=== PATIENT | male | born 1960 | race Caucasian/White ===

== ENCOUNTER 2023-06-11 22:17 | Inpatient (IN) | payer MEDICARE, MEDICAID, SELFPAY ==
[2023-06-12] VITALS: BP 178/76; PULSE 56; RESP 18; TEMP 35.9; O2SAT 97
--- NOTE | 2023-06-12 00:51 | PC.ADMIT ---
Jose is a 63yo male who arrived on unit 06/11/2023 from [facility] and signed a CV. A&O(4), pleasant upon approach, made good eye contact, denied ETOH or substance use, denied SI/HI/AH/VH at time of admission, Pt presented for CAH to hurt self and neighbors, He says his current medications are not working, seeking med review, Past diagnosis and treatment for Schizophrenia and PTSD. Medical concerns are Stage 3 Chronic Kidney disease (BUN 28, GFR58 06/08/2023), HTN, GERD, CAD, NIDDM, Asthma, High Cholesterol, Chronic shoulder Pain, Hx seizures, Hx stroke, Coronary artery Bypass graft 2010, AK 2013, and Enuresis. Pt stated he was still tired from medications given in ER, He answered a few questions, got into bed and went to sleep. He is on 5-min saftey checks.
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
[2023-06-12 08:52] LABS: Alanine Aminotransferase 35 U/L (0-40); Alkaline Phosphatase 51 U/L (39-117); Anion Gap 11 (12-20); Aspartate Amino Transferase 19 U/L (5-37); Bilirubin Total 0.4 mg/dL (0.0-1.0); Blood Urea Nitrogen 16 mg/dL (9-16); Calcium 9.7 mg/dL (8.4-10.2); Carbon Dioxide 25 mmol/L (22-29); Chloride 108 mmol/L (96-108); Cholesterol 155 mg/dL; Estimated Glomerular Filt Rate > 60; Glucose Fasting 116 mg/dL (60-99); HDL Cholesterol 35 mg/dL; LDL Cholesterol Calculated 94 mg/dl; Potassium 4.3 mmol/L (3.3-5.1); Sodium 140 mmol/L (135-145); Total Protein 7.4 g/dL (6.5-8.0); Triglycerides 130 mg/dL
[2023-06-12 09:07] LABS: Thyroid Stimulating Hormone 2.02 uIU/mL (0.32-4.0)
[2023-06-12 09:17] LABS: Folate 9.7 ng/mL (> or = 4.0); Vitamin B12 345 pg/mL (200-900)
[2023-06-12 10:42] VITALS: BP 140/80; PULSE 76; RESP 16; TEMP 36.4; O2SAT 98
[2023-06-12] MEDS: metFORMIN HCl 1,000 MG TABLET 1000 MG PO ×2 (10:43→18:33)
[2023-06-12] MEDS: lisinopriL 5 MG TABLET PO (10:43)
[2023-06-12] MEDS: ARIPiprazole 20 MG TABLET PO (10:43)
[2023-06-12] MEDS: Omeprazole 20 MG CAPSULE.DR PO (10:43)
[2023-06-12] MEDS: Divalproex Sodium ER 500 MG TAB.ER.24H 1000 MG PO (10:44)
[2023-06-12] MEDS: Tamsulosin HCL 0.4 MG CAPSULE PO (10:44)
[2023-06-12] MEDS: Docusate Sodium 100 MG CAPSULE PO ×2 (10:44→20:01)
[2023-06-12] MEDS: Aspirin 81 MG TAB.CHEW PO (10:44)
[2023-06-12] MEDS: Divalproex Sodium 250 MG TABLET.DR PO (10:44)
[2023-06-12] MEDS: Atorvastatin Calcium 40 MG TABLET PO (10:44)
[2023-06-12] MEDS: Acetaminophen 325 MG TABLET 650 MG PO (10:56)
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
[2023-06-12 13:54] LABS: MANUAL DIFF FLAG NO
[2023-06-12 14:00] VITALS: BP 112/55
[2023-06-12 14:04] LABS: Basophils Absolute Auto 0.1 X10*3/uL (0.0-0.2); Basophils Percent Auto 1.2 % (0-2); Imm Gran Abs Auto 0.02 X10*3/uL (0.00-0.03); Imm Gran Pct Auto 0.3 % (0.0-0.4); SCAN SMEAR FLAG 1; White Blood Count 6.7 X10*3/uL (4.8-10.8)
[2023-06-12 14:06] LABS: Eosinophils Absolute Auto 0.2 X10*3/uL (0.0-0.4); Eosinophils Percent Auto 2.4 % (0-4); Hematocrit 32.7 % (42.0-52.0); Hemoglobin 10.1 g/dl (14.0-18.0); Lymphocytes Absolute Auto 2.1 X10*3/uL (1.2-4.9); Lymphocytes Percent Auto 31.3 % (20-40); Mean Corpuscular HGB Conc 30.9 g/dl (31.0-36.0); Mean Corpuscular Hemoglobin 24.4 pg (27.0-33.0); Monocytes Absolute Auto 0.8 X10*3/uL (0.1-1.2); Monocytes Percent Auto 11.6 % (2-11); Neutrophils Absolute Auto 3.6 x10*3/uL (2.0-8.3); Neutrophils Percent Auto 53.2 % (45-73); Platelet Count 198 X10*3/uL (160-400); Red Blood Count 4.14 X10*6/uL (4.60-5.80); Red Cell Distribution Width 17.7 % (11.0-16.0)
[2023-06-12 14:08] LABS: PLT ABN DIST 1
[2023-06-12 14:13] LABS: Iron 23 mcg/dL (45-160); Percent Iron Saturation 8 % (15-50); Total Iron Binding Capacity 288 mcg/dL (228-428); Unsaturated Iron Binding 265 ug/dL
[2023-06-12 14:45] VITALS: BP 125/67
[2023-06-12 16:36] LABS: Glucose, Whole Blood 85 mg/dL (60-115)
[2023-06-12 18:00] VITALS: BP 121/67; PULSE 79; RESP 18; TEMP 36.1; O2SAT 98
--- NOTE | 2023-06-12 18:51 | PC.NURSE ---
1400-PT C/O OF DIZZINESS, VS TAKEN: 112/55, PULSE 78. PT ENCOURAGED TO DRINK WATER TO REHYDRATE. PAINTING ALSO REPORTED, TYLENOL PROVIDED AND THAI ODOM NP NOTIFIED IN PERSON. 1445-VS RECHECK: 125/67, PULSE 72. PT STATED THAT HIS PAINTING HAD SUBSIDED SOME, AND HE WAS NOT FEELING DIZZY ANY LONGER.
[2023-06-12] MEDS: traZODone HCL 100 MG TABLET 200 MG PO (20:01)
[2023-06-12] MEDS: OLANZapine 10 MG TABLET 20 MG PO (20:02)
[2023-06-12 20:04] LABS: Glucose, Whole Blood 124 mg/dL (60-115)
[2023-06-13] MEDS: Omeprazole 20 MG CAPSULE.DR PO (06:35)
[2023-06-13 08:00] VITALS: BP 114/69; PULSE 83; RESP 18; TEMP 36.4; O2SAT 96
[2023-06-13] MEDS: Divalproex Sodium 250 MG TABLET.DR PO (08:46)
[2023-06-13] MEDS: ARIPiprazole 20 MG TABLET PO (08:46)
[2023-06-13] MEDS: Ferrous Sulfate 324 MG TABLET.DR PO (08:46)
[2023-06-13] MEDS: Aspirin 81 MG TAB.CHEW PO (08:46)
[2023-06-13] MEDS: metFORMIN HCl 1,000 MG TABLET 1000 MG PO ×2 (08:46→16:57)
[2023-06-13] MEDS: lisinopriL 5 MG TABLET PO (08:47)
[2023-06-13] MEDS: Tamsulosin HCL 0.4 MG CAPSULE PO (08:47)
[2023-06-13] MEDS: Ascorbic Acid 250 MG TABLET PO (08:47)
[2023-06-13] MEDS: Divalproex Sodium ER 500 MG TAB.ER.24H 1000 MG PO (08:47)
[2023-06-13] MEDS: Atorvastatin Calcium 40 MG TABLET PO (08:47)
[2023-06-13] MEDS: Docusate Sodium 100 MG CAPSULE PO ×2 (08:47→20:18)
[2023-06-13 09:48] LABS: Glucose, Whole Blood 111 mg/dL (60-115)
[2023-06-13 11:33] LABS: Glucose, Whole Blood 94 mg/dL (60-115)
--- NOTE | 2023-06-13 16:00 | P.PNPSI_ITS ---
Subjective Subjective Date of Service: 06/13/23 Reason For Visit: F25.0 , F43.10 Subjective Notes: Conditional Voluntary and 3 Day Interim History: Pt reports difficulty falling and staying asleep. Pt reports feeling tired in the morning and was trying to take a nap. He denied SI/HI. He reports less AH/VH. Pt reports he hopes to be discharged on Saturday, however, we discussed concern of daughter about his ability to care for himself. Per nursing, pt taking medications, no aggression towards self or others. Review of Systems Review of Systems General: No fevers, malaise, unintentional weight loss HEENT: No blurred vision, diplopia. No sore throat, nasal congestion, rhinorrhea, sinus pain, ear pain Cardiovascular: No chest pain, palpitations, or leg edema Respiratory: No shortness of breath, wheezing, cough GI: +constipation. No abdominal pain, nausea, vomiting, diarrhea, melena, hematochezia : No dysuria, hematuria, increased urinary frequency, decreased urinary output MSK: No myalgia, back pain. +right shoulder pain Neuro: No headaches, weakness, paresthesias Skin: No rashes or lesions Mental Status Exam Mental Status Exam Narrative: Appearance: wearing hospital gown, fair hygiene, in NAD Behavior: cooperative Speech: clear, normal rate/rhythm/volume, spontaneous Psychomotor: no agitation or retardation noted TP: linear TC: feeling paranoid with people but better and wanting to return home soon Mood: tired Affect: congruent SI: denies HI: denies VH/AH: reports less AH, denies that they are command Delusions: paranoid ideas Insight/judgment: fair x 2. Memory/cog: alert, oriented to month, year, does not know name of hospital, oriented to situation. Pending MOCA and ACL. Diagnostics Vital Signs (24Hr): Vital Signs - 24 hr 06/12/23 18:00 06/13/23 08:00 Temperature 96.9 F 97.6 F Pulse Rate 79 83 Respiratory Rate 18 18 Blood Pressure 121/67 114/69 Pulse Oximetry 98 96 Oxygen Delivery Method Room Air Room Air Labs 06/12/23 13:47 06/12/23 07:51 Labs: Laboratory Results - last 48 hr 06/12/23 06/12/23 06/12/23 07:51 07:51 13:47 WBC 6.7 RBC 4.14 L Hgb 10.1 L Hct 32.7 L MCV 79.0 L MCH 24.4 L MCHC 30.9 L RDW 17.7 H Plt Count 198 MPV Not Reportable Immature Gran % (Auto) 0.3 Neut % (Auto) 53.2 Lymph % (Auto) 31.3 [place] % (Auto) 11.6 H Eos % (Auto) 2.4 Baso % (Auto) 1.2 Lymph # (Auto) 2.1 [place] # (Auto) 0.8 Eos # (Auto) 0.2 Baso # (Auto) 0.1 Abs Immat Gran (auto) 0.02 Absolute Neuts (auto) 3.6 Absolute Nucleated RBC 0.000 Nucleated RBC % (auto) 0.0 Sodium 140 Potassium 4.3 Chloride 108 Carbon Dioxide 25 Anion Gap 11 L BUN 16 Creatinine 1.12 Estim Creat Clear Calc TNP Estimated GFR > 60 POC Glucose Fasting Glucose 116 H Calcium 9.7 Iron TIBC % Saturation Unsat Iron Binding Total Bilirubin 0.4 AST 19 ALT 35 Alkaline Phosphatase 51 Total Protein 7.4 Albumin 4.0 Triglycerides 130 Cholesterol 155 LDL Cholesterol, Calc 94 HDL Cholesterol 35 Vitamin B12 345 Folate 9.7 TSH 2.02 06/12/23 06/12/23 06/12/23 13:47 16:29 19:56 WBC RBC Hgb Hct MCV MCH MCHC RDW Plt Count MPV Immature Gran % (Auto) Neut % (Auto) Lymph % (Auto) [place] % (Auto) Eos % (Auto) Baso % (Auto) Lymph # (Auto) [place] # (Auto) Eos # (Auto) Baso # (Auto) Abs Immat Gran (auto) Absolute Neuts (auto) Absolute Nucleated RBC Nucleated RBC % (auto) Sodium Potassium Chloride Carbon Dioxide Anion Gap BUN Creatinine Estim Creat Clear Calc Estimated GFR POC Glucose 85 124 H Fasting Glucose Calcium Iron 23 L TIBC 288 % Saturation 8 L Unsat Iron Binding 265 Total Bilirubin AST ALT Alkaline Phosphatase Total Protein Albumin Triglycerides Cholesterol LDL Cholesterol, Calc HDL Cholesterol Vitamin B12 Folate TSH 06/13/23 06/13/23 07:52 11:20 WBC RBC Hgb Hct MCV MCH MCHC RDW Plt Count MPV Immature Gran % (Auto) Neut % (Auto) Lymph % (Auto) [place] % (Auto) Eos % (Auto) Baso % (Auto) Lymph # (Auto) [place] # (Auto) Eos # (Auto) Baso # (Auto) Abs Immat Gran (auto) Absolute Neuts (auto) Absolute Nucleated RBC Nucleated RBC % (auto) Sodium Potassium Chloride Carbon Dioxide Anion Gap BUN Creatinine Estim Creat Clear Calc Estimated GFR POC Glucose 111 94 Fasting Glucose Calcium Iron TIBC % Saturation Unsat Iron Binding Total Bilirubin AST ALT Alkaline Phosphatase Total Protein Albumin Triglycerides Cholesterol LDL Cholesterol, Calc HDL Cholesterol Vitamin B12 Folate TSH Medications Medications Current Medications Acetaminophen (Acetaminophen 325 Mg Tablet) 650 mg PO Q6H PRN PRN Reason: Headache/Pain Mild Scale (1-3) Last Admin: 06/12/23 10:56 Dose: 650 mg Al Hydroxide/Mg Hydroxide (Magnesium Hydrox/Alum Hydrox 30 Ml Oral.Susp) 30 ml PO Q6H PRN PRN Reason: Heartburn/Nausea Aripiprazole (Aripiprazole 20 Mg Tablet) 20 mg PO DAILY [facility] Last Admin: 06/13/23 08:46 Dose: 20 mg Ascorbic Acid (Ascorbic Acid 250 Mg Tablet) 250 mg PO DAILY [facility] Last Admin: 06/13/23 08:47 Dose: 250 mg Aspirin (Aspirin 81 Mg Tab.Chew) 81 mg PO DAILY [facility] Last Admin: 06/13/23 08:46 Dose: 81 mg Atorvastatin Calcium (Atorvastatin Calcium 40 Mg Tablet) 40 mg PO DAILY [facility] Last Admin: 06/13/23 08:47 Dose: 40 mg Dextrose (Dextrose 50 % 25 Gm/50 Ml Syringe) 25 gm IVPUSH Q15M PRN; Protocol PRN Reason: per Hypoglycemia Standing Ord. Divalproex Sodium (Divalproex Sodium Er 500 Mg Tab.Er.24h) 1,000 mg PO DAILY [facility] Last Admin: 06/13/23 08:47 Dose: 1,000 mg Divalproex Sodium (Divalproex Sodium 250 Mg Tablet.) 250 mg PO DAILY [facility] Last Admin: 06/13/23 08:46 Dose: 250 mg Docusate Sodium (Docusate Sodium 100 Mg Capsule) 100 mg PO BID [facility] Last Admin: 06/13/23 08:47 Dose: 100 mg Ferrous Sulfate (Ferrous Sulfate 324 Mg Tablet.) 324 mg PO DAILY [facility] Last Admin: 06/13/23 08:46 Dose: 324 mg Glucose (Glucose Gel 15 Gm Gel..Gram.) 15 gm PO Q15M PRN; Protocol PRN Reason: per Hypoglycemia Standing Ord. Hydroxyzine HCl (Hydroxyzine Hcl 25 Mg Tablet) 25 mg PO Q6H PRN PRN Reason: Anxiety Insulin Human Lispro (Insulin Lispro 100 Unit/Ml 3 Ml Vial) 0 unit SUBCUT QIDACHS [facility]; Protocol Last Admin: 06/13/23 12:13 Dose: Not Given Lisinopril (Lisinopril 5 Mg Tablet) 5 mg PO DAILY [facility]; Protocol Last Admin: 06/13/23 08:47 Dose: 5 mg Magnesium Hydroxide (Milk Of Magnesia 30 Ml Oral.Susp) 30 ml PO DAILY PRN PRN Reason: Constipation Metformin HCl (Metformin Hcl 1,000 Mg Tablet) 1,000 mg PO BIDWM [facility] Last Admin: 06/13/23 08:46 Dose: 1,000 mg Olanzapine (Olanzapine 10 Mg Tablet) 20 mg PO BEDTIME [facility] Last Admin: 06/12/23 20:02 Dose: 20 mg Omeprazole (Omeprazole 20 Mg Capsule.Dr) 20 mg PO DAILY@0630 [facility] Last Admin: 06/13/23 06:35 Dose: 20 mg Tamsulosin HCl (Tamsulosin Hcl 0.4 Mg Capsule) 0.4 mg PO DAILY [facility] Last Admin: 06/13/23 08:47 Dose: 0.4 mg Trazodone HCl (Trazodone Hcl 100 Mg Tablet) 100 mg PO BEDTIME [facility] Allergies Allergies Allergy/AdvReac Type Severity Reaction Status Date / Time No Known Allergies Allergy Verified 06/11/23 22:23 Assessment & Plan Assessment & Plan (1) Schizophrenia: Status: Acute Code(s): F20.9 - Schizophrenia, unspecified Plan Mr. Escobar is a 63 year-old male with hx of schizophrenia who self presented to [facility] reporting increase CAH telling him to stab himself as well as stab his neighbors. Utox negative. UA did not show UTI. Other pentinent labs, unremarkable. Pt with long with hx of schizophrenia and multiple inpatient admission. On the unit, pt reports voices are less and denies suicidal or homicidal ideation. Pt signed 3 day notice. Collateral information was gathered from his daughter, who reports pt typically signs 3 day notice once admitted psychiatrically. Daughter denies hx of suicide attempts or hx of violence. Pending collateral information from OP psychiatrist. PLAN Admit to S1, CV, 15 minutes checks for safety/ continue olanzapine, depakote Obtain collateral information Aftercare planning. 06/13 continue tx. Reason for continued inpatient stay Substantial Risk for: inability to function Time Spent With Patient Time: Total time managing care of this patient today ____ minutes.
[2023-06-13 16:41] LABS: Glucose, Whole Blood 98 mg/dL (60-115)
[2023-06-13] MEDS: Milk of Magnesia 30 ML ORAL.SUSP PO (17:05)
[2023-06-13 18:00] VITALS: BP 135/66; PULSE 66; RESP 18; TEMP 36.3; TEMP 36.6; O2SAT 95
[2023-06-13] MEDS: OLANZapine 10 MG TABLET 20 MG PO (20:18)
[2023-06-13] MEDS: traZODone HCL 100 MG TABLET PO (20:18)
[2023-06-13] MEDS: hydrOXYzine HCL 25 MG TABLET PO (20:33)
[2023-06-14] MEDS: Omeprazole 20 MG CAPSULE.DR PO (05:57)
[2023-06-14 08:00] VITALS: BP 117/65; PULSE 94; RESP 18; TEMP 36; O2SAT 95
[2023-06-14 08:08] LABS: Glucose, Whole Blood 107 mg/dL (60-115)
[2023-06-14] MEDS: metFORMIN HCl 1,000 MG TABLET 1000 MG PO ×2 (08:11→16:24)
[2023-06-14] MEDS: Ascorbic Acid 250 MG TABLET PO (08:11)
[2023-06-14] MEDS: lisinopriL 5 MG TABLET PO (08:11)
[2023-06-14] MEDS: Ferrous Sulfate 324 MG TABLET.DR PO (08:12)
[2023-06-14] MEDS: Tamsulosin HCL 0.4 MG CAPSULE PO (08:12)
[2023-06-14] MEDS: ARIPiprazole 20 MG TABLET PO (08:12)
[2023-06-14] MEDS: Divalproex Sodium 250 MG TABLET.DR PO (08:12)
[2023-06-14] MEDS: Divalproex Sodium ER 500 MG TAB.ER.24H 1000 MG PO (08:12)
[2023-06-14] MEDS: Atorvastatin Calcium 40 MG TABLET PO (08:12)
[2023-06-14] MEDS: Aspirin 81 MG TAB.CHEW PO (08:12)
[2023-06-14 08:15] LABS: Ammonia 31 umol/L (13-55)
[2023-06-14 11:20] LABS: Glucose, Whole Blood 109 mg/dL (60-115)
[2023-06-14] MEDS: Acetaminophen 325 MG TABLET 650 MG PO ×2 (12:26→21:40)
--- NOTE | 2023-06-14 14:21 | P.PNPSI_ITS ---
Subjective Subjective Date of Service: 06/14/23 Reason For Visit: F25.0 , F43.10 Subjective Notes: Conditional Voluntary and 3 Day Interim History: Pt reports he does not remember if he slept or not last night but states he does not feel as tired. Per nursing, pt slept through the night but this has been report from nursing even when pt has reported poor sleep. Pt reports voices are much less here. He reports having headache, RN to give him tylenol. He has spor adic reports of dizziness. However, note that ortho VS, were negative. Pt encouraged to drink fluids and slowly get up. He denies SI/HI. He continues to report he wants to be discharged Saturday and wo uld not retract 3 day. Medication Compliance: Yes Side effects from medications: No Review of Systems Review of Systems General: No fevers, malaise, unintentional weight loss HEENT: No blurred vision, diplopia. No sore throat, nasal congestion, rhinorrhea, sinus pain, ear pain Cardiovascular: No chest pain, palpitations, or leg edema Respiratory: No shortness of breath, wheezing, cough GI: +constipation. No abdominal pain, nausea, vomiting, diarrhea, melena, hematochezia : No dysuria, hematuria, increased urinary frequency, decreased urinary output MSK: No myalgia, back pain. +right shoulder pain Neuro: No headaches, weakness, paresthesias Skin: No rashes or lesions Mental Status Exam Mental Status Exam Narrative: Appearance: wearing hospital gown, fair hygiene, in NAD Behavior: cooperative Speech: clear, normal rate/rhythm/volume, spontaneous Psychomotor: no agitation or retardation noted TP: linear TC: feeling paranoid with people but better and wanting to return home soon Mood: tired Affect: congruent SI: denies HI: denies VH/AH: reports less AH, denies that they are command Delusions: paranoid ideas Insight/judgment: fair x 2. Memory/cog: alert, oriented to month, year, does not know name of hospital, oriented to situation. Pending MOCA and ACL. Diagnostics Vital Signs (24Hr): Vital Signs - 24 hr 06/13/23 18:00 06/13/23 18:00 06/14/23 08:00 Temperature 97.4 F 97.9 F 96.8 F Pulse Rate 66 66 94 Respiratory Rate 18 18 18 Blood Pressure 135/66 135/66 117/65 Pulse Oximetry 95 95 95 Oxygen Delivery Method Room Air Room Air Room Air 06/14/23 08:00 Temperature 96.8 F Pulse Rate 94 Respiratory Rate 18 Blood Pressure 117/65 Pulse Oximetry 95 Oxygen Delivery Method Room Air Labs 06/12/23 13:47 06/12/23 07:51 Labs: Laboratory Results - last 48 hr 06/12/23 06/12/23 06/13/23 16:29 19:56 07:52 POC Glucose 85 124 H 111 Ammonia Valproic Acid 06/13/23 06/13/23 06/14/23 11:20 16:36 07:47 POC Glucose 94 98 107 Ammonia Valproic Acid 06/14/23 06/14/23 06/14/23 08:00 08:00 11:11 POC Glucose 109 Ammonia 31 Valproic Acid 51.0 Medications Medications Current Medications Acetaminophen (Acetaminophen 325 Mg Tablet) 650 mg PO Q6H PRN PRN Reason: Headache/Pain Mild Scale (1-3) Last Admin: 06/14/23 12:26 Dose: 650 mg Al Hydroxide/Mg Hydroxide (Magnesium Hydrox/Alum Hydrox 30 Ml Oral.Susp) 30 ml PO Q6H PRN PRN Reason: Heartburn/Nausea Aripiprazole (Aripiprazole 20 Mg Tablet) 20 mg PO DAILY [facility] Last Admin: 06/14/23 08:12 Dose: 20 mg Ascorbic Acid (Ascorbic Acid 250 Mg Tablet) 250 mg PO DAILY [facility] Last Admin: 06/14/23 08:11 Dose: 250 mg Aspirin (Aspirin 81 Mg Tab.Chew) 81 mg PO DAILY [facility] Last Admin: 06/14/23 08:12 Dose: 81 mg Atorvastatin Calcium (Atorvastatin Calcium 40 Mg Tablet) 40 mg PO DAILY [facility] Last Admin: 06/14/23 08:12 Dose: 40 mg Dextrose (Dextrose 50 % 25 Gm/50 Ml Syringe) 25 gm IVPUSH Q15M PRN; Protocol PRN Reason: per Hypoglycemia Standing Ord. Divalproex Sodium (Divalproex Sodium Er 500 Mg Tab.Er.24h) 1,000 mg PO DAILY [facility] Last Admin: 06/14/23 08:12 Dose: 1,000 mg Divalproex Sodium (Divalproex Sodium 250 Mg Tablet.Dr) 250 mg PO DAILY [facility] Last Admin: 06/14/23 08:12 Dose: 250 mg Docusate Sodium (Docusate Sodium 100 Mg Capsule) 100 mg PO BID [facility] Last Admin: 06/14/23 08:15 Dose: Not Given Ferrous Sulfate (Ferrous Sulfate 324 Mg Tablet.) 324 mg PO DAILY [facility] Last Admin: 06/14/23 08:12 Dose: 324 mg Glucose (Glucose Gel 15 Gm Gel..Gram.) 15 gm PO Q15M PRN; Protocol PRN Reason: per Hypoglycemia Standing Ord. Hydroxyzine HCl (Hydroxyzine Hcl 25 Mg Tablet) 25 mg PO Q6H PRN PRN Reason: Anxiety Last Admin: 06/13/23 20:33 Dose: 25 mg Insulin Human Lispro (Insulin Lispro 100 Unit/Ml 3 Ml Vial) 0 unit SUBCUT QIDACHS [facility]; Protocol Last Admin: 06/14/23 11:15 Dose: Not Given Lisinopril (Lisinopril 5 Mg Tablet) 5 mg PO DAILY [facility]; Protocol Last Admin: 06/14/23 08:11 Dose: 5 mg Magnesium Hydroxide (Milk Of Magnesia 30 Ml Oral.Susp) 30 ml PO DAILY PRN PRN Reason: Constipation Last Admin: 06/13/23 17:05 Dose: 30 ml Metformin HCl (Metformin Hcl 1,000 Mg Tablet) 1,000 mg PO BIDWM [facility] Last Admin: 06/14/23 08:11 Dose: 1,000 mg Olanzapine (Olanzapine 10 Mg Tablet) 20 mg PO BEDTIME [facility] Last Admin: 06/13/23 20:18 Dose: 20 mg Omeprazole (Omeprazole 20 Mg Capsule.) 20 mg PO DAILY@0630 [facility] Last Admin: 06/14/23 05:57 Dose: 20 mg Tamsulosin HCl (Tamsulosin Hcl 0.4 Mg Capsule) 0.4 mg PO DAILY [facility] Last Admin: 06/14/23 08:12 Dose: 0.4 mg Trazodone HCl (Trazodone Hcl 100 Mg Tablet) 100 mg PO BEDTIME [facility] Last Admin: 06/13/23 20:18 Dose: 100 mg Allergies Allergies Allergy/AdvReac Type Severity Reaction Status Date / Time No Known Allergies Allergy Verified 06/11/23 22:23 Assessment & Plan Assessment & Plan (1) Schizophrenia: Status: Acute Code(s): F20.9 - Schizophrenia, unspecified Plan Mr. Escobar is a 63 year-old male with hx of schizophrenia who self presented to [facility] reporting increase CAH telling him to stab himself as well as stab his neighbors. Utox negative. UA did not show UTI. Other pentinent labs, unremarkable. Pt with long with hx of schizophrenia and multiple inpatient admission. On the unit, pt reports voices are less and denies suicidal or homicidal ideation. Pt signed 3 day notice. Collateral information was gathered from his daughter, who reports pt typically signs 3 day notice once admitted psychiatrically. Daughter denies hx of suicide attempts or hx of violence. Pending collateral information from OP psychiatrist. PLAN Admit to S1, CV, 15 minutes checks for safety/ continue olanzapine, depakote Obtain collateral information Aftercare planning. 06/13 continue tx. 06/14 continue tx. 3day up Saturday. no imminent safety concern, then will dc when 3 day is up. Reason for continued inpatient stay Substantial Risk for: inability to function Time Spent With Patient Time: Total time managing care of this patient today ____ minutes.
[2023-06-14 16:22] LABS: Glucose, Whole Blood 119 mg/dL (60-115)
[2023-06-14 18:00] VITALS: BP 147/71; PULSE 79; TEMP 36.5; O2SAT 100
[2023-06-14 20:07] LABS: Glucose, Whole Blood 113 mg/dL (60-115)
[2023-06-14] MEDS: OLANZapine 10 MG TABLET 20 MG PO (21:39)
[2023-06-14] MEDS: traZODone HCL 100 MG TABLET PO (21:40)
[2023-06-14] MEDS: Docusate Sodium 100 MG CAPSULE PO (21:41)
[2023-06-14] MEDS: hydrOXYzine HCL 25 MG TABLET PO (22:15)
--- NOTE | 2023-06-15 05:01 | PC.NURSE ---
@3717 this morning, pt reported having the urgency to void, Pt unable to void upon several attempts in the bathroom, this RN bladder scanned pt, only 44mls in bladder. pt denies any abdominal pain or discomfort. will continue to monitor and pass on in report to the A.M nurse.
[2023-06-15] MEDS: Omeprazole 20 MG CAPSULE.DR PO (05:59)
[2023-06-15 08:01] LABS: Glucose, Whole Blood 101 mg/dL (60-115)
[2023-06-15] MEDS: Tamsulosin HCL 0.4 MG CAPSULE PO (09:24)
[2023-06-15] MEDS: Ascorbic Acid 250 MG TABLET PO (09:27)
[2023-06-15] MEDS: Aspirin 81 MG TAB.CHEW PO (09:27)
[2023-06-15] MEDS: ARIPiprazole 20 MG TABLET PO (09:31)
[2023-06-15] MEDS: Atorvastatin Calcium 40 MG TABLET PO (09:31)
[2023-06-15] MEDS: Divalproex Sodium ER 500 MG TAB.ER.24H 1000 MG PO (09:32)
[2023-06-15] MEDS: Ferrous Sulfate 324 MG TABLET.DR PO (09:32)
[2023-06-15] MEDS: lisinopriL 5 MG TABLET PO (09:33)
[2023-06-15] MEDS: Docusate Sodium 100 MG CAPSULE PO ×2 (09:33→20:45)
[2023-06-15] MEDS: metFORMIN HCl 1,000 MG TABLET 1000 MG PO ×2 (09:34→17:15)
[2023-06-15] MEDS: Divalproex Sodium 250 MG TABLET.DR PO (09:34)
[2023-06-15] MEDS: Acetaminophen 325 MG TABLET 650 MG PO (09:46)
--- NOTE | 2023-06-15 09:54 | P.PNPSI_ITS ---
Subjective Subjective Date of Service: 06/15/23 Reason For Visit: F25.0 , F43.10 Subjective Notes: 3 Day Interim History: Pt reports sleeping better last night. He reports during the day at times feeling tired. He reports he does not hear voices. He denies SI/HI. He looks forward to return home Saturday. He is visible on the unit, not very social with peers but pleasant on approach. No behavioral concerns. pt takes medications as prescribed. Last BM 06/13 with Milk of mag. Normal to have about 3 days with no BM afterwards. Review of Systems Review of Systems General: No fevers, malaise, unintentional weight loss HEENT: No blurred vision, diplopia. No sore throat, nasal congestion, r hinorrhea, sinus pain, ear pain Cardiovascular: No chest pain, palpitations, or leg edema Respiratory: No shortness of breath, wheezing, cough GI: +constipation. No abdominal pain, nausea, vomiting, diarrhea, melena, hematochezia : No dysuria, hematuria, increased urinary frequency, decreased urinary output MSK: No myalgia, back pain. +right shoulder pain Neuro: No headaches, weakness, paresthesias Skin: No rashes or lesions Mental Status Exam Mental Status Exam Narrative: Appearance: wearing hospital gown, fair hygiene, in NAD Behavior: cooperative Speech: clear, normal rate/rhythm/volume, spontaneous Psychomotor: no agitation or retardation noted TP: linear TC: feeling paranoid with people but better and wanting to return home soon Mood: tired Affect: congruent SI: denies HI: denies VH/AH: reports less AH, denies that they are command Delusions: paranoid ideas Insight/judgment: fair x 2. Memory/cog: alert, oriented to month, year, does not know name of hospital, oriented to situation. Pending MOCA and ACL. Diagnostics Vital Signs (24Hr): Vital Signs - 24 hr 06/14/23 18:00 Temperature 97.7 F Pulse Rate 79 Blood Pressure 147/71 H Pulse Oximetry 100 Oxygen Delivery Method Room Air Labs 06/12/23 13:47 06/12/23 07:51 Labs: Laboratory Results - last 48 hr 06/13/23 06/13/23 06/14/23 11:20 16:36 07:47 POC Glucose 94 98 107 Ammonia Valproic Acid 06/14/23 06/14/23 06/14/23 08:00 08:00 11:11 POC Glucose 109 Ammonia 31 Valproic Acid 51.0 06/14/23 06/14/23 06/15/23 16:17 20:03 07:51 POC Glucose 119 H 113 101 Ammonia Valproic Acid Medications Medications Current Medications Acetaminophen (Acetaminophen 325 Mg Tablet) 650 mg PO Q6H PRN PRN Reason: Headache/Pain Mild Scale (1-3) Last Admin: 06/15/23 09:46 Dose: 650 mg Al Hydroxide/Mg Hydroxide (Magnesium Hydrox/Alum Hydrox 30 Ml Oral.Susp) 30 ml PO Q6H PRN PRN Reason: Heartburn/Nausea Aripiprazole (Aripiprazole 20 Mg Tablet) 20 mg PO DAILY [facility] Last Admin: 06/15/23 09:31 Dose: 20 mg Ascorbic Acid (Ascorbic Acid 250 Mg Tablet) 250 mg PO DAILY [facility] Last Admin: 06/15/23 09:27 Dose: 250 mg Aspirin (Aspirin 81 Mg Tab.Chew) 81 mg PO DAILY [facility] Last Admin: 06/15/23 09:27 Dose: 81 mg Atorvastatin Calcium (Atorvastatin Calcium 40 Mg Tablet) 40 mg PO DAILY [facility] Last Admin: 06/15/23 09:31 Dose: 40 mg Dextrose (Dextrose 50 % 25 Gm/50 Ml Syringe) 25 gm IVPUSH Q15M PRN; Protocol PRN Reason: per Hypoglycemia Standing Ord. Divalproex Sodium (Divalproex Sodium Er 500 Mg Tab.Er.24h) 1,000 mg PO DAILY [facility] Last Admin: 06/15/23 09:32 Dose: 1,000 mg Divalproex Sodium (Divalproex Sodium 250 Mg Tablet.) 250 mg PO DAILY [facility] Last Admin: 06/15/23 09:34 Dose: 250 mg Docusate Sodium (Docusate Sodium 100 Mg Capsule) 100 mg PO BID [facility] Last Admin: 06/15/23 09:33 Dose: 100 mg Ferrous Sulfate (Ferrous Sulfate 324 Mg Tablet.) 324 mg PO DAILY [facility] Last Admin: 06/15/23 09:32 Dose: 324 mg Glucose (Glucose Gel 15 Gm Gel..Gram.) 15 gm PO Q15M PRN; Protocol PRN Reason: per Hypoglycemia Standing Ord. Hydroxyzine HCl (Hydroxyzine Hcl 25 Mg Tablet) 25 mg PO Q6H PRN PRN Reason: Anxiety Last Admin: 06/14/23 22:15 Dose: 25 mg Insulin Human Lispro (Insulin Lispro 100 Unit/Ml 3 Ml Vial) 0 unit SUBCUT QIDACHS [facility]; Protocol Last Admin: 06/15/23 09:22 Dose: Not Given Lisinopril (Lisinopril 5 Mg Tablet) 5 mg PO DAILY [facility]; Protocol Last Admin: 06/15/23 09:33 Dose: 5 mg Magnesium Hydroxide (Milk Of Magnesia 30 Ml Oral.Susp) 30 ml PO DAILY PRN PRN Reason: Constipation Last Admin: 06/13/23 17:05 Dose: 30 ml Metformin HCl (Metformin Hcl 1,000 Mg Tablet) 1,000 mg PO BIDWM [facility] Last Admin: 06/15/23 09:34 Dose: 1,000 mg Olanzapine (Olanzapine 10 Mg Tablet) 20 mg PO BEDTIME [facility] Last Admin: 06/14/23 21:39 Dose: 20 mg Omeprazole (Omeprazole 20 Mg Capsule.Dr) 20 mg PO DAILY@0630 [facility] Last Admin: 06/15/23 05:59 Dose: 20 mg Tamsulosin HCl (Tamsulosin Hcl 0.4 Mg Capsule) 0.4 mg PO DAILY [facility] Last Admin: 06/15/23 09:24 Dose: 0.4 mg Trazodone HCl (Trazodone Hcl 100 Mg Tablet) 100 mg PO BEDTIME [facility] Last Admin: 06/14/23 21:40 Dose: 100 mg Allergies Allergies Allergy/AdvReac Type Severity Reaction Status Date / Time No Known Allergies Allergy Verified 06/11/23 22:23 Assessment & Plan Assessment & Plan (1) Schizophrenia: Status: Acute Code(s): F20.9 - Schizophrenia, unspecified Plan Mr. Escobar is a 63 year-old male with hx of schizophrenia who self presented to [facility] reporting increase CAH telling him to stab himself as well as stab his neighbors. Utox negative. UA did not show UTI. Other pentinent labs, unremarkable. Pt with long with hx of schizophrenia and multiple inpatient admission. On the unit, pt reports voices are less and denies suicidal or homicidal ideation. Pt signed 3 day notice. Collateral information was gathered from his daughter, who reports pt typically signs 3 day notice once admitted psychiatrically. Daughter denies hx of suicide attempts or hx of violence. Pending collateral information from OP psychiatrist. PLAN Admit to S1, CV, 15 minutes checks for safety/ continue olanzapine, depakote Obtain collateral information Aftercare planning. 06/13 continue tx. 06/14 continue tx. 3d up Saturday. no imminent safety concern, then will dc when 3 day is up. 06/15 continue tx. Reason for continued inpatient stay Substantial Risk for: inability to function Time Spent With Patient Time: Total time managing care of this patient today ____ minutes.
[2023-06-15 11:58] LABS: Glucose, Whole Blood 87 mg/dL (60-115)
[2023-06-15 16:46] LABS: Glucose, Whole Blood 90 mg/dL (60-115)
[2023-06-15 18:00] VITALS: BP 120/57; PULSE 77; RESP 20; TEMP 36.8; O2SAT 98
--- NOTE | 2023-06-15 19:02 | PC.NURSE ---
Assumed care at 7 am. Patient alert, oriented x4, responds appropriately, mostly Yoruba speaking with some [place] ability, communicated with mostly in Yoruba. Denied urological complaints at this time, but endorsed some prior straining to void, denies at this time. Patient endoses some constipation, says it has been three days since his last bm (06/13). Had endorsed 4/10 mid distal abdominal pain this morning, tylenol at 9am with effect. Patient up, ambulating with steady gait, socializing in milieu, napping after each meal in bed with lights off. Patient reports feeling down this evening related to the site that we are currently in, spent some time out on the patio, still feeling down. Patient with some medication changes, prozac changed to once daily dosing. Med and meal compliant. Denies anxiety.
[2023-06-15] MEDS: traZODone HCL 100 MG TABLET PO (20:45)
[2023-06-15] MEDS: OLANZapine 10 MG TABLET 20 MG PO (20:45)
[2023-06-15] MEDS: hydrOXYzine HCL 25 MG TABLET PO (20:46)
[2023-06-15 20:59] LABS: Glucose, Whole Blood 110 mg/dL (60-115)
[2023-06-16 08:00] VITALS: BP 129/73; PULSE 89; RESP 18; TEMP 37; O2SAT 97
[2023-06-16] MEDS: ARIPiprazole 20 MG TABLET PO (08:26)
[2023-06-16] MEDS: lisinopriL 5 MG TABLET PO (08:26)
[2023-06-16] MEDS: Ascorbic Acid 250 MG TABLET PO (08:26)
[2023-06-16] MEDS: Docusate Sodium 100 MG CAPSULE PO ×2 (08:26→20:20)
[2023-06-16] MEDS: Divalproex Sodium 250 MG TABLET.DR PO (08:26)
[2023-06-16] MEDS: Divalproex Sodium ER 500 MG TAB.ER.24H 1000 MG PO (08:26)
[2023-06-16] MEDS: Omeprazole 20 MG CAPSULE.DR PO (08:27)
[2023-06-16] MEDS: Aspirin 81 MG TAB.CHEW PO (08:27)
[2023-06-16] MEDS: metFORMIN HCl 1,000 MG TABLET 1000 MG PO ×2 (08:27→17:16)
[2023-06-16] MEDS: Tamsulosin HCL 0.4 MG CAPSULE PO (08:27)
[2023-06-16] MEDS: Ferrous Sulfate 324 MG TABLET.DR PO (08:27)
[2023-06-16] MEDS: Atorvastatin Calcium 40 MG TABLET PO (08:27)
--- NOTE | 2023-06-16 12:33 | HO.PSYCHPN ---
Subjective Subjective Date of Service: 06/16/23 Reason For Visit: F25.0 , F43.10 Subjective Notes: Conditional Voluntary and 3 Day Interim History: Pt slept through the night. He continues to denied hearing voices. He also denies SI/HI. He is visible for meals, does take naps during the day. Will check depakote level on Saturday morning, along with ammonia. Will check A1c as well, here on lispro but has not needed additional coverage- will d/c. No behavioral concerns. pt takes medications as prescribed. Last BM 06/13 with Milk of mag. Normal to have about 3 days with no BM afterwards. Review of Systems Review of Systems General: No fevers, malaise, unintentional weight loss HEENT: No blurred vision, diplopia. No sore throat, nasal congestion, rhinorrhea, sinus pain, ear pain Cardiovascular: No chest pain, palpitations, or leg edema Respiratory: No shortness of breath, wheezing, cough GI: +constipation. No abdominal pain, nausea, vomiting, diarrhea, melena, hematochezia : No dysuria, hematuria, increased urinary frequency, decreased urinary output MSK: No myalgia, back pain. +right shoulder pain Neuro: No headaches, weakness, paresthesias Skin: No rashes or lesions Mental Status Exam Mental Status Exam Narrative: Appearance: wearing hospital gown, fair hygiene, in NAD Behavior: cooperative Speech: clear, normal rate/rhythm/volume, spontaneous Psychomotor: no agitation or retardation noted TP: linear TC: feeling paranoid with people but better and wanting to return home soon Mood: tired Affect: congruent SI: denies HI: denies VH/AH: reports less AH, denies that they are command Delusions: paranoid ideas Insight/judgment: fair x 2. Memory/cog: alert, oriented to month, year, does not know name of hospital, oriented to situation. Pending MOCA and ACL. Diagnostics Vital Signs (24Hr): Vital Signs - 24 hr 06/15/23 18:00 06/16/23 08:00 Temperature 98.2 F 98.6 F Pulse Rate 77 89 Respiratory Rate 20 18 Blood Pressure 120/57 L 129/73 Pulse Oximetry 98 97 Oxygen Delivery Method Room Air Room Air Labs 06/12/23 13:47 06/12/23 07:51 Labs: Laboratory Results - last 48 hr 06/14/23 06/14/23 06/15/23 16:17 20:03 07:51 POC Glucose 119 H 113 101 06/15/23 06/15/23 06/15/23 11:53 16:37 20:44 POC Glucose 87 90 110 Medications Medications Current Medications Acetaminophen (Acetaminophen 325 Mg Tablet) 650 mg PO Q6H PRN PRN Reason: Headache/Pain Mild Scale (1-3) Last Admin: 06/15/23 09:46 Dose: 650 mg Al Hydroxide/Mg Hydroxide (Magnesium Hydrox/Alum Hydrox 30 Ml Oral.Susp) 30 ml PO Q6H PRN PRN Reason: Heartburn/Nausea Aripiprazole (Aripiprazole 20 Mg Tablet) 20 mg PO DAILY [facility] Last Admin: 06/16/23 08:26 Dose: 20 mg Ascorbic Acid (Ascorbic Acid 250 Mg Tablet) 250 mg PO DAILY [facility] Last Admin: 06/16/23 08:26 Dose: 250 mg Aspirin (Aspirin 81 Mg Tab.Chew) 81 mg PO DAILY [facility] Last Admin: 06/16/23 08:27 Dose: 81 mg Atorvastatin Calcium (Atorvastatin Calcium 40 Mg Tablet) 40 mg PO DAILY [facility] Last Admin: 06/16/23 08:27 Dose: 40 mg Dextrose (Dextrose 50 % 25 Gm/50 Ml Syringe) 25 gm IVPUSH Q15M PRN; Protocol PRN Reason: per Hypoglycemia Standing Ord. Divalproex Sodium (Divalproex Sodium Er 500 Mg Tab.Er.24h) 1,000 mg PO DAILY [facility] Last Admin: 06/16/23 08:26 Dose: 1,000 mg Divalproex Sodium (Divalproex Sodium 250 Mg Tablet.) 250 mg PO DAILY [facility] Last Admin: 06/16/23 08:26 Dose: 250 mg Docusate Sodium (Docusate Sodium 100 Mg Capsule) 100 mg PO BID [facility] Last Admin: 06/16/23 08:26 Dose: 100 mg Ferrous Sulfate (Ferrous Sulfate 324 Mg Tablet.) 324 mg PO DAILY [facility] Last Admin: 06/16/23 08:27 Dose: 324 mg Glucose (Glucose Gel 15 Gm Gel..Gram.) 15 gm PO Q15M PRN; Protocol PRN Reason: per Hypoglycemia Standing Ord. Hydroxyzine HCl (Hydroxyzine Hcl 25 Mg Tablet) 25 mg PO Q6H PRN PRN Reason: Anxiety Last Admin: 06/15/23 20:46 Dose: 25 mg Lisinopril (Lisinopril 5 Mg Tablet) 5 mg PO DAILY [facility]; Protocol Last Admin: 06/16/23 08:26 Dose: 5 mg Magnesium Hydroxide (Milk Of Magnesia 30 Ml Oral.Susp) 30 ml PO DAILY PRN PRN Reason: Constipation Last Admin: 06/13/23 17:05 Dose: 30 ml Metformin HCl (Metformin Hcl 1,000 Mg Tablet) 1,000 mg PO BIDWM [facility] Last Admin: 06/16/23 08:27 Dose: 1,000 mg Olanzapine (Olanzapine 10 Mg Tablet) 20 mg PO BEDTIME [facility] Last Admin: 06/15/23 20:45 Dose: 20 mg Omeprazole (Omeprazole 20 Mg Capsule.Dr) 20 mg PO DAILY@0630 [facility] Last Admin: 06/16/23 08:27 Dose: 20 mg Tamsulosin HCl (Tamsulosin Hcl 0.4 Mg Capsule) 0.4 mg PO DAILY [facility] Last Admin: 06/16/23 08:27 Dose: 0.4 mg Trazodone HCl (Trazodone Hcl 100 Mg Tablet) 100 mg PO BEDTIME [facility] Last Admin: 06/15/23 20:45 Dose: 100 mg Allergies Allergies Allergy/AdvReac Type Severity Reaction Status Date / Time No Known Allergies Allergy Verified 06/11/23 22:23 Assessment & Plan Assessment & Plan (1) Schizophrenia: Status: Acute Code(s): F20.9 - Schizophrenia, unspecified Plan Mr. Escobar is a 63 year-old male with hx of schizophrenia who self presented to [facility] reporting increase CAH telling him to stab himself as well as stab his neighbors. Utox negative. UA did not show UTI. Other pentinent labs, unremarkable. Pt with long with hx of schizophrenia and multiple inpatient admission. On the unit, pt reports voices are less and denies suicidal or homicidal ideation. Pt signed 3 day notice. Collateral information was gathered from his daughter, who reports pt typically signs 3 day notice once admitted psychiatrically. Daughter denies hx of suicide attempts or hx of violence. Pending collateral information from OP psychiatrist. PLAN Admit to S1, CV, 15 minutes checks for safety/ continue olanzapine, depakote Obtain collateral information Aftercare planning. 06/13 continue tx. 06/14 continue tx. 3day up Saturday. no imminent safety concern, then will dc when 3 day is up. 06/15 continue tx. 06/16 continue tx. Reason for continued inpatient stay Substantial Risk for: inability to function Time Spent With Patient Time: Total time managing care of this patient today ____ minutes.
[2023-06-16 16:38] LABS: Glucose, Whole Blood 99 mg/dL (60-115)
[2023-06-16 18:00] VITALS: BP 128/60; PULSE 54; RESP 18; TEMP 36.3; O2SAT 97
[2023-06-16 20:02] LABS: Glucose, Whole Blood 99 mg/dL (60-115)
[2023-06-16] MEDS: OLANZapine 10 MG TABLET 20 MG PO (20:20)
[2023-06-16] MEDS: traZODone HCL 100 MG TABLET PO (20:21)
[2023-06-17 07:51] LABS: Glucose, Whole Blood 102 mg/dL (60-115)
[2023-06-17 08:00] VITALS: BP 118/70; PULSE 84; RESP 18; TEMP 36.2; O2SAT 95
[2023-06-17 08:09] LABS: Ammonia 32 umol/L (13-55)
[2023-06-17 08:15] LABS: Estimated Average Glucose 120 mg/dL; Hemoglobin A1c % 5.8 %
[2023-06-17] MEDS: lisinopriL 5 MG TABLET PO (08:17)
[2023-06-17] MEDS: Ascorbic Acid 250 MG TABLET PO (08:17)
[2023-06-17] MEDS: Ferrous Sulfate 324 MG TABLET.DR PO (08:17)
[2023-06-17] MEDS: Aspirin 81 MG TAB.CHEW PO (08:17)
[2023-06-17] MEDS: Tamsulosin HCL 0.4 MG CAPSULE PO (08:17)
[2023-06-17] MEDS: ARIPiprazole 20 MG TABLET PO (08:17)
[2023-06-17] MEDS: metFORMIN HCl 1,000 MG TABLET 1000 MG PO (08:17)
[2023-06-17] MEDS: Divalproex Sodium ER 500 MG TAB.ER.24H 1000 MG PO (08:17)
[2023-06-17] MEDS: Atorvastatin Calcium 40 MG TABLET PO (08:18)
[2023-06-17] MEDS: Divalproex Sodium 250 MG TABLET.DR PO (08:18)
[2023-06-17] MEDS: Docusate Sodium 100 MG CAPSULE PO (08:18)
--- NOTE | 2023-06-17 09:29 | PM.PSYDC ---
DS: Providers Provider Date of Service: 06/17/23 Date of admission: 06/11/23 22:17 Date of discharge: 06/17/23 Primary care physician: Leonela Gupta Consults: 06/12/23 05:25 Consult to Hospitalist Routine Comment: Consulting Provider: Hospitalist Reason For Exam: Hospital transfer Attending physician on discharge: Augustine Sosa Discharging clinician: Valerie Lizama DS: Diagnosis Discharge Diagnosis (1) Schizophrenia: Status: Acute DS: Medications Discharge Medications Home Medications: Previous Rx's Medication Instructions Recorded aripiprazole 20 mg tablet (Abilify) 20 mg PO DAILY #30 tabs 06/17/23 ascorbic acid (vitamin C) 250 mg 250 mg PO DAILY #30 tabs 06/17/23 tablet aspirin 81 mg chewable tablet 81 mg PO DAILY #30 tabs 06/17/23 atorvastatin 40 mg tablet 40 mg PO DAILY #30 tabs 06/17/23 divalproex 250 mg tablet,delayed 250 mg PO BEDTIME #30 tabs 06/17/23 release divalproex 500 mg tablet,extended 1,000 mg PO BEDTIME #60 tabs 06/17/23 release 24 hr docusate sodium 100 mg capsule 100 mg PO BID #60 caps 06/17/23 ferrous sulfate 324 mg (65 mg 324 mg PO DAILY #30 tabs 06/17/23 iron) tablet,delayed release lisinopril 5 mg tablet 5 mg PO DAILY #30 tabs 06/17/23 metformin 1,000 mg tablet 1,000 mg PO BIDWM #60 tabs 06/17/23 olanzapine 20 mg tablet 20 mg PO BEDTIME #30 tabs 06/17/23 omeprazole 20 mg capsule,delayed 20 mg PO DAILY@0630 #30 caps 06/17/23 release tamsulosin 0.4 mg capsule 0.4 mg PO DAILY #30 caps 06/17/23 trazodone 100 mg tablet 100 mg PO BEDTIME #30 tabs 06/17/23 Mental Status Exam Mental Status Exam Narrative: Appearance: wearing hospital gown, fair hygiene, in NAD Behavior: cooperative Speech: clear, normal rate/rhythm/volume, spontaneous Psychomotor: no agitation or retardation noted TP: linear TC: looking forward to return home Mood: good Affect: congruent SI: denies HI: denies VH/AH: denies Delusions: none overt signs Insight/judgment: fair x 2. Memory/cog: alert, oriented x 3. Data Data Completed and Pending Completed studies during hospitalization [Text1]: 06/12/23 06/12/23 06/12/23 07:51 07:51 13:47 WBC 6.7 RBC 4.14 L Hgb 10.1 L Hct 32.7 L MCV 79.0 L MCH 24.4 L MCHC 30.9 L RDW 17.7 H Plt Count 198 MPV Not Reportable Immature Gran % (Auto) 0.3 Neut % (Auto) 53.2 Lymph % (Auto) 31.3 [place] % (Auto) 11.6 H Eos % (Auto) 2.4 Baso % (Auto) 1.2 Lymph # (Auto) 2.1 [place] # (Auto) 0.8 Eos # (Auto) 0.2 Baso # (Auto) 0.1 Abs Immat Gran (auto) 0.02 Absolute Neuts (auto) 3.6 Absolute Nucleated RBC 0.000 Nucleated RBC % (auto) 0.0 Sodium 140 Potassium 4.3 Chloride 108 Carbon Dioxide 25 Anion Gap 11 L BUN 16 Creatinine 1.12 Estim Creat Clear Calc TNP Estimated GFR > 60 POC Glucose Fasting Glucose 116 H Estimat Average Glucose Hemoglobin A1c % Calcium 9.7 Iron TIBC % Saturation Unsat Iron Binding Total Bilirubin 0.4 AST 19 ALT 35 Alkaline Phosphatase 51 Ammonia Total Protein 7.4 Albumin 4.0 Triglycerides 130 Cholesterol 155 LDL Cholesterol, Calc 94 HDL Cholesterol 35 Vitamin B12 345 Folate 9.7 TSH 2.02 Valproic Acid 06/12/23 06/12/23 06/12/23 13:47 16:29 19:56 WBC RBC Hgb Hct MCV MCH MCHC RDW Plt Count MPV Immature Gran % (Auto) Neut % (Auto) Lymph % (Auto) [place] % (Auto) Eos % (Auto) Baso % (Auto) Lymph # (Auto) [place] # (Auto) Eos # (Auto) Baso # (Auto) Abs Immat Gran (auto) Absolute Neuts (auto) Absolute Nucleated RBC Nucleated RBC % (auto) Sodium Potassium Chloride Carbon Dioxide Anion Gap BUN Creatinine Estim Creat Clear Calc Estimated GFR POC Glucose 85 124 H Fasting Glucose Estimat Average Glucose Hemoglobin A1c % Calcium Iron 23 L TIBC 288 % Saturation 8 L Unsat Iron Binding 265 Total Bilirubin AST ALT Alkaline Phosphatase Ammonia Total Protein Albumin Triglycerides Cholesterol LDL Cholesterol, Calc HDL Cholesterol Vitamin B12 Folate TSH Valproic Acid 06/13/23 06/13/23 06/13/23 07:52 11:20 16:36 WBC RBC Hgb Hct MCV MCH MCHC RDW Plt Count MPV Immature Gran % (Auto) Neut % (Auto) Lymph % (Auto) [place] % (Auto) Eos % (Auto) Baso % (Auto) Lymph # (Auto) [place] # (Auto) Eos # (Auto) Baso # (Auto) Abs Immat Gran (auto) Absolute Neuts (auto) Absolute Nucleated RBC Nucleated RBC % (auto) Sodium Potassium Chloride Carbon Dioxide Anion Gap BUN Creatinine Estim Creat Clear Calc Estimated GFR POC Glucose 111 94 98 Fasting Glucose Estimat Average Glucose Hemoglobin A1c % Calcium Iron TIBC % Saturation Unsat Iron Binding Total Bilirubin AST ALT Alkaline Phosphatase Ammonia Total Protein Albumin Triglycerides Cholesterol LDL Cholesterol, Calc HDL Cholesterol Vitamin B12 Folate TSH Valproic Acid 06/14/23 06/14/23 06/14/23 07:47 08:00 08:00 WBC RBC Hgb Hct MCV MCH MCHC RDW Plt Count MPV Immature Gran % (Auto) Neut % (Auto) Lymph % (Auto) [place] % (Auto) Eos % (Auto) Baso % (Auto) Lymph # (Auto) [place] # (Auto) Eos # (Auto) Baso # (Auto) Abs Immat Gran (auto) Absolute Neuts (auto) Absolute Nucleated RBC Nucleated RBC % (auto) Sodium Potassium Chloride Carbon Dioxide Anion Gap BUN Creatinine Estim Creat Clear Calc Estimated GFR POC Glucose 107 Fasting Glucose Estimat Average Glucose Hemoglobin A1c % Calcium Iron TIBC % Saturation Unsat Iron Binding Total Bilirubin AST ALT Alkaline Phosphatase Ammonia 31 Total Protein Albumin Triglycerides Cholesterol LDL Cholesterol, Calc HDL Cholesterol Vitamin B12 Folate TSH Valproic Acid 51.0 06/14/23 06/14/23 06/14/23 11:11 16:17 20:03 WBC RBC Hgb Hct MCV MCH MCHC RDW Plt Count MPV Immature Gran % (Auto) Neut % (Auto) Lymph % (Auto) [place] % (Auto) Eos % (Auto) Baso % (Auto) Lymph # (Auto) [place] # (Auto) Eos # (Auto) Baso # (Auto) Abs Immat Gran (auto) Absolute Neuts (auto) Absolute Nucleated RBC Nucleated RBC % (auto) Sodium Potassium Chloride Carbon Dioxide Anion Gap BUN Creatinine Estim Creat Clear Calc Estimated GFR POC Glucose 109 119 H 113 Fasting Glucose Estimat Average Glucose Hemoglobin A1c % Calcium Iron TIBC % Saturation Unsat Iron Binding Total Bilirubin AST ALT Alkaline Phosphatase Ammonia Total Protein Albumin Triglycerides Cholesterol LDL Cholesterol, Calc HDL Cholesterol Vitamin B12 Folate TSH Valproic Acid 06/15/23 06/15/23 06/15/23 07:51 11:53 16:37 WBC RBC Hgb Hct MCV MCH MCHC RDW Plt Count MPV Immature Gran % (Auto) Neut % (Auto) Lymph % (Auto) [place] % (Auto) Eos % (Auto) Baso % (Auto) Lymph # (Auto) [place] # (Auto) Eos # (Auto) Baso # (Auto) Abs Immat Gran (auto) Absolute Neuts (auto) Absolute Nucleated RBC Nucleated RBC % (auto) Sodium Potassium Chloride Carbon Dioxide Anion Gap BUN Creatinine Estim Creat Clear Calc Estimated GFR POC Glucose 101 87 90 Fasting Glucose Estimat Average Glucose Hemoglobin A1c % Calcium Iron TIBC % Saturation Unsat Iron Binding Total Bilirubin AST ALT Alkaline Phosphatase Ammonia Total Protein Albumin Triglycerides Cholesterol LDL Cholesterol, Calc HDL Cholesterol Vitamin B12 Folate TSH Valproic Acid 06/15/23 06/16/23 06/16/23 20:44 16:31 19:48 WBC RBC Hgb Hct MCV MCH MCHC RDW Plt Count MPV Immature Gran % (Auto) Neut % (Auto) Lymph % (Auto) [place] % (Auto) Eos % (Auto) Baso % (Auto) Lymph # (Auto) [place] # (Auto) Eos # (Auto) Baso # (Auto) Abs Immat Gran (auto) Absolute Neuts (auto) Absolute Nucleated RBC Nucleated RBC % (auto) Sodium Potassium Chloride Carbon Dioxide Anion Gap BUN Creatinine Estim Creat Clear Calc Estimated GFR POC Glucose 110 99 99 Fasting Glucose Estimat Average Glucose Hemoglobin A1c % Calcium Iron TIBC % Saturation Unsat Iron Binding Total Bilirubin AST ALT Alkaline Phosphatase Ammonia Total Protein Albumin Triglycerides Cholesterol LDL Cholesterol, Calc HDL Cholesterol Vitamin B12 Folate TSH Valproic Acid 06/17/23 06/17/23 06/17/23 07:43 07:56 07:56 WBC RBC Hgb Hct MCV MCH MCHC RDW Plt Count MPV Immature Gran % (Auto) Neut % (Auto) Lymph % (Auto) [place] % (Auto) Eos % (Auto) Baso % (Auto) Lymph # (Auto) [place] # (Auto) Eos # (Auto) Baso # (Auto) Abs Immat Gran (auto) Absolute Neuts (auto) Absolute Nucleated RBC Nucleated RBC % (auto) Sodium Potassium Chloride Carbon Dioxide Anion Gap BUN Creatinine Estim Creat Clear Calc Estimated GFR POC Glucose 102 Fasting Glucose Estimat Average Glucose 120 Hemoglobin A1c % 5.8 Calcium Iron TIBC % Saturation Unsat Iron Binding Total Bilirubin AST ALT Alkaline Phosphatase Ammonia 32 Total Protein Albumin Triglycerides Cholesterol LDL Cholesterol, Calc HDL Cholesterol Vitamin B12 Folate TSH Valproic Acid DS: Summary Hospital Course Hospital Course: HPI: Mr. Escobar is a 63 year-old male with hx of schizophrenia who was brought to [facility] due to increase CAH telling him to stab himself and poison himself as well as stab neighbors/roommates. Pt has history of multiple inpatient psychiatric admission for CAH. In the ED, his utox is negative.? Pertinent labs completed in ED- CBC shows microcytic anemia, CMP- elevated BUN 28, Cr 1.36. UA was negative for UTI otherwise normal. On the unit, pt reports he was hearing voices, more than usual. He reports he was worried about his life as he thought people were after him. On the unit he denies suicidal or homicidal ideation. He reports today that he has not heard voices. He also denies any plan or intent to harm himself or others. Pt reports he has difficulty sleeping. He also reports he has fair appetite. He reports he is feeling better today and would like to be discharged soon as he does not want to lose the room he rents. He reports shoulder pain on right side. He reports he hit his shoulder few weeks ago. Past Psychiatric History: Inpatient: several in the past. /2021/2022-> Chasidy Vega. [place] 04/2019; [facility] [place] 05/2019.? OP: Jem Hennessy [facility] [phone] Medical Evaluation Reviewed: Yes HOSPITAL COURSE On the unit, pt was admitted on a CV and placed on 15 minutes checks for safety. Initially patient reported increased AH, but denied suicidal or homicidal ideation throughout this hospital stay. We discussed risks, benefits and alternative treatment options, pt agreed to resume home medications including combination of two antipsychotic olanzapine 20mg po qhs and ability 20mg po daily. He was also continued on depakote 1500mg po daily. His affect gradually presented as much brighter. He denied hearing voices. He continued to denied SI/HI. He signed a 3 day notice, stating that he was feeling much better and ready to return home. He was visible for meals but not very social although always very pleasant on approach. He did not show any signs of aggression towards self or others. Collateral information gathered from his daughter, Jannet, who lives in [place]- who reports that her father has exacerbation of AH but tend to stabilize fairly quickly and pt tends to sign 3 day notices right away. No imminent safety concern in terms of harm to self or others. Pt complaint with his medications and has VNA. Medically- DM type 2 seems to be well controlled with current medications. Mostly Metformin 1000mg po BID, A1C 5.6%. He was found to have microcytic anemia and low iron- started on ferrous sulfate 324mg po daily with ascorbic acid for better absorption. Episodes of constipation- continue miralax and sennakot. Status at Discharge Cognitive/behavioral status at discharge: Pt with brighter, non labile affect. No SI/HI. No VH/AH. No delusional content noted or reported. Pt reports looking forward to going back home and going to his appointments. No signs of aggression towards self or others. Sleeping well. Eating well. Functional status at discharge: independent ambulation Overall status at discharge: patient is progressing back to baseline Time Spent with Patient Time attestation: Total time managing care of this patient today _30___ minutes. Time spent: Greater than 30 minutes Discharge Plan Discharge Anticipated Discharge Date/Time: 06/17/23 09:14 Patient Disposition: Home, Self-Care Discharge Diagnosis: Schizophrenia Referrals: Leonela Gupta [Other] - 1 Week Venancio Hilliard - Psychiatric / Therapist [Other] - 06/20/23 11:00 am (Appointment: 06/20/2023 @ 11am ) Discharge Medications: New atorvastatin 40 mg Tablet 40 mg PO DAILY Qty: 30 0RF tamsulosin 0.4 mg Capsule 0.4 mg PO DAILY Qty: 30 0RF lisinopril 5 mg Tablet 5 mg PO DAILY Qty: 30 0RF Protocol: Hold for SBP< HOLD for SBP < : 90 aripiprazole [Abilify] 20 mg Tablet 20 mg PO DAILY Qty: 30 0RF ferrous sulfate 324 mg (65 mg iron) Tablet,Delayed Release (Dr/Ec) 324 mg PO DAILY Qty: 30 0RF divalproex 250 mg Tablet,Delayed Release (Dr/Ec) 250 mg PO BEDTIME Qty: 30 0RF divalproex 500 mg Tablet Extended Release 24 Hr 1,000 mg PO BEDTIME Qty: 60 0RF aspirin 81 mg Tablet,Chewable 81 mg PO DAILY Qty: 30 0RF olanzapine 20 mg tablet 20 mg PO BEDTIME Qty: 30 0RF trazodone 100 mg Tablet 100 mg PO BEDTIME Qty: 30 0RF ascorbic acid (vitamin C) 250 mg Tablet 250 mg PO DAILY Qty: 30 0RF metformin 1,000 mg Tablet 1,000 mg PO BIDWM Qty: 60 0RF docusate sodium 100 mg Capsule 100 mg PO BID Qty: 60 0RF omeprazole 20 mg Capsule,Delayed Release(Dr/Ec) 20 mg PO DAILY@0630 Qty: 30 0RF Discharge Orders: Discharge Order (Routine); Ordered 06/17/23 Ordered By: Valerie Lizama Diet: Diabetic diet Activity on Discharge: As tolerated Stand Alone Forms: Patient Portal Discharge page Care Plan Goals: 1. Maintain mood 2. No SI/HI 3. Less AH/VH 4. No self harm Health Concerns: Follow up with PCP for routine care. -DM type 2 is well controlled with A1C 5.8% -Iron Deficiency Anemia- Started on Ferrous Sulfate 324mg po daily with Ascorbic Acid (Vit C) for better absorption. Plan of Treatment: 1. Take medications as prescribed 2. Follow up with scheduled follow up appointments 3. VNA to resume 4. Go to nearest ED or call 911 in event of emergency Assessment: Pt with brighter, non labile affect. No SI/HI. Less VH/AH. No plan or intent to harm self or others. Pt sleeping and eating well. Future oriented. No signs of aggression towards self or others.
--- NOTE | 2023-06-17 13:16 | PC.NURSE ---
Patient alert and oriented x 3. Denies depression, anxiety. Denies SI/HI. Reports readiness for discharge. Patient given discharged instructions. Educated about his meds. Pt discharged with referrals, personal belongings. VSS, Pt denies pain. Ambulates with steady gait. Patient being transferred home by Beckie.
== END 2023-06-17 13:00 | disposition home or self-care (01) | DRG 885 ==
PROVIDERS: Clinical Nurse Specialist Psychiatric/Mental Health, Adult; Physician Assistant; Social Worker; Admitting Provider Psychiatry & Neurology Psychiatry; PCP Student in an Organized Health Care Education/Training Program; Visit Provider Psychiatry & Neurology Psychiatry
DX: F20.9 Schizophrenia, unspecified (principal); I25.10 Atherosclerotic heart disease of native coronary artery without angina pectoris; G40.909 Epilepsy, unspecified, not intractable, without status epilepticus; G89.29 Other chronic pain; M25.511 Pain in right shoulder; I10 Essential (primary) hypertension; Z86.73 Personal history of transient ischemic attack (TIA), and cerebral infarction without residual deficits; K59.00 Constipation, unspecified; E78.5 Hyperlipidemia, unspecified; D50.9 Iron deficiency anemia, unspecified; Z86.14 Personal history of Methicillin resistant Staphylococcus aureus infection; Z87.891 Personal history of nicotine dependence; Z79.82 Long term (current) use of aspirin; Z79.84 Long term (current) use of oral hypoglycemic drugs; Z79.899 Other long term (current) drug therapy
CPT/HCPCS: 36415; 80053; 80061; 80164; 82140; 82607; 82746; 82947; 83036; 83540; 84443; 85025

== ENCOUNTER → 2023-06-11 22:17 | Outpatient (BNV) | payer MEDICARE, MEDICAID, SELFPAY | PROVIDERS: Admitting Provider Psychiatry & Neurology Psychiatry; Visit Provider Social Worker | DX: F20.89 Other schizophrenia (principal) | CPT/HCPCS: 90792; 99231; 99232; 99239 ==

== ENCOUNTER → 2023-06-11 22:17 | Outpatient (BNV) | payer MEDICARE, MEDICAID, SELFPAY | PROVIDERS: Admitting Provider Psychiatry & Neurology Psychiatry; Visit Provider Physician Assistant | DX: Z00.00 Encounter for general adult medical examination without abnormal findings (principal) | CPT/HCPCS: 99222 ==